=== PATIENT | female | born 1990 | race Caucasian/White ===

== ENCOUNTER 2023-12-13 12:43 | Outpatient (CLI) | payer OTHER, SELFPAY ==
--- NOTE | 2023-12-13 13:00 | CRLHL7_ITS ---
For Patients: As a result of the Century Cures Act, medical imaging exams and procedure reports are released immediately into your electronic medical record. You may view this report before your referring provider. If you have questions, please contact your health care provider. INDICATION: Dating and viability COMPARISON: None. TECHNIQUE: Real-time starks-scale imaging of the pelvis was performed. FINDINGS: Intrauterine gestational sac is present with a mean sac diameter of 0.89 cm, 5 weeks 5 days. Possible developing yolk sac. No pole. Corpus luteal cyst right ovary measures 2 cm. Left ovary unremarkable. No pelvic free fluid. IMPRESSION: Intrauterine gestational sac measuring 5 weeks 5 days. No pole. Follow-up in 2 weeks recommended. Dictated by Benton Wood MD @ 12/13/2023 3:49:56 PM (Electronically Signed)
== END 2023-12-13 12:44 | disposition home or self-care (01) ==
LOC: US 12:44
PROVIDERS: PCP Internal Medicine; Visit Provider Registered Nurse
DX: Z34.91 Encounter for supervision of normal pregnancy, unspecified, first trimester (principal); Z3A.01 Less than 8 weeks gestation of pregnancy
CPT/HCPCS: 76817

== ENCOUNTER 2023-12-27 09:03 | Outpatient (CLI) | payer OTHER, SELFPAY ==
--- NOTE | 2023-12-27 09:15 | CRLHL7_ITS ---
For Patients: As a result of the Century Cures Act, medical imaging exams and procedure reports are released immediately into your electronic medical record. You may view this report before your referring provider. If you have questions, please contact your health care provider. INDICATION: Follow-up viability COMPARISON: 12/13/2023 TECHNIQUE: Real-time starks-scale imaging of the pelvis was performed. FINDINGS: Sonographic imaging demonstrates a single living intrauterine gestation. The embryo demonstrates a regular cardiac rate measuring 149 beats per minute. The embryo`s crown-rump length measurement of 1.0 cm corresponds to a gestational age of 7 weeks 0 days with a sonographic due date of 08/14/2024. There is a normal-appearing yolk sac. There are no gross abnormalities noted within the embryo at this early state of development. The gestational sac has a normal appearance. There is no evidence of a perigestational hemorrhage. The amount of fluid within the sac appears appropriate for gestational age. The cervix is closed. The myometrium appears normal. The ovaries are of normal size. Corpus luteal cyst right ovary. There are no suspicious fluid collections noted in the cul-de-sac. IMPRESSION: Normal first trimester OB ultrasound exam. Gestational age calculated at 7 weeks 0 days with a sonographic due date of 08/14/2024. Dictated by Benton Wood MD @ 12/27/2023 12:52:00 PM (Electronically Signed)
== END 2023-12-27 09:04 | disposition home or self-care (01) ==
LOC: US 09:03
PROVIDERS: PCP Internal Medicine; Visit Provider Registered Nurse
DX: Z34.91 Encounter for supervision of normal pregnancy, unspecified, first trimester (principal); Z3A.01 Less than 8 weeks gestation of pregnancy
CPT/HCPCS: 76817; 84443; 86592; 86703; 86704; 86706; 86762; 86787; 86803; 86850; 86900; 86901; 87086; 87340; 87491; 87591

== ENCOUNTER 2024-03-14 07:48 | Outpatient (CLI) | payer MEDICAID, SELFPAY | END 2024-03-14 07:49 | disposition home or self-care (01) | LOC: US 07:49 | PROVIDERS: PCP Internal Medicine; Visit Provider Obstetrics & Gynecology | DX: O99.212 Obesity complicating pregnancy, second trimester (principal); Z3A.18 18 weeks gestation of pregnancy | CPT/HCPCS: 76811 ==

== ENCOUNTER 2024-05-22 12:44 | Outpatient (CLI) | payer MEDICAID, SELFPAY | END 2024-05-22 12:45 | disposition home or self-care (01) | LOC: NFLDREF 05-26 01:41 | PROVIDERS: PCP Internal Medicine; Referring Provider Internal Medicine; Visit Provider Obstetrics & Gynecology | DX: Z34.93 Encounter for supervision of normal pregnancy, unspecified, third trimester (principal); Z3A.28 28 weeks gestation of pregnancy | CPT/HCPCS: 86592 ==

== ENCOUNTER 2024-06-07 15:19 | Outpatient (CLI) | payer MEDICAID, SELFPAY | END 2024-06-07 15:20 | disposition home or self-care (01) | LOC: NFLDREF 15:22 | PROVIDERS: PCP Internal Medicine; Visit Provider Obstetrics & Gynecology | DX: R35.0 Frequency of micturition (principal) | CPT/HCPCS: 87086 ==

== ENCOUNTER 2024-06-22 13:06 | Outpatient (CLI) | payer MEDICAID, SELFPAY ==
--- NOTE | 2024-06-22 13:00 | CRLHL7_ITS ---
For Patients: As a result of the Century Cures Act, medical imaging exams and procedure reports are released immediately into your electronic medical record. You may view this report before your referring provider. If you have questions, please contact your health care provider. OB ULTRASOUND NICOL by US: 08/14/2024. GA: 32 w, 3 d. Single. Comparison: 04/10/2024, 03/14/2024. INDICATION: Obesity. TECHNIQUE: Real time grayscale imaging of the fetus was performed. Transabdominal. CERVIX: Not visualized. POSITIONING: Vertex. AMNIOTIC FLUID: 7.5 cm. SDP (N: greater than 2 x 1 cm) PLACENTA: Technique: Transabdominal. PLACENTA POSITION: Posterior. DOPPLER: heart rate: 142 bpm. BIOMETRY: BPD: 8.2 cm. 32 w, 5 d, 51.9 percent. HC: 30.0 cm. 33 w, 1 d, 31.9 percent. AC: 30.6 cm. 34 w, 4 d, 94.7 percent. FL: 6.3 cm. 32 w, 3 d, 38.0 percent. FL/AC ratio: 20.5 percent. HC/AC ratio: 1.0. EFW: 2243 g. Weight: 4 lbs, 15 oz. age by this US: 33 w, 2 d. NICOL by this US: 08/08/2024. Percentile by NICOL: 78.1 percent. IMPRESSION: 1. Sonographic gestational age 33 weeks 2 days and sonographic due date 08/08/2024. Sonographic age is 6 days ahead of the clinical age. 2. Estimated weight 78th percentile. Abdominal circumference 95th percentile. Benton Wood M.D. Diagnostic Radiologist [email or web address] GEORGE/vik chery/Dictated by: Benton Wood MD @ 06/22/2024 2:33:00 PM (Electronically Signed)
== END 2024-06-22 13:07 | disposition home or self-care (01) ==
LOC: US 13:07
PROVIDERS: PCP Internal Medicine; Visit Provider Obstetrics & Gynecology
DX: O99.213 Obesity complicating pregnancy, third trimester (principal); Z3A.32 32 weeks gestation of pregnancy
CPT/HCPCS: 76816

== ENCOUNTER 2024-07-05 14:44 | Outpatient (CLI) | payer MEDICAID, SELFPAY | END 2024-07-05 14:45 | disposition home or self-care (01) | LOC: NFLDREF 07-06 03:21 | PROVIDERS: PCP Internal Medicine; Referring Provider Internal Medicine; Visit Provider Obstetrics & Gynecology | DX: Z34.93 Encounter for supervision of normal pregnancy, unspecified, third trimester (principal); Z3A.34 34 weeks gestation of pregnancy | CPT/HCPCS: 82728 ==

== ENCOUNTER 2024-07-20 15:57 | Outpatient (CLI) | payer MEDICAID, SELFPAY ==
[2024-07-20 22:49] LABS: Strep B Susceptibility Needed? No
[2024-07-21 15:02] LABS: Strep B DNA Probe POSITIVE (Negative)
== END 2024-07-20 15:58 | disposition home or self-care (01) ==
LOC: NFLDREF 15:57
PROVIDERS: PCP Internal Medicine; Visit Provider Obstetrics & Gynecology
DX: Z34.03 Encounter for supervision of normal first pregnancy, third trimester (principal)
CPT/HCPCS: 87081; 87653

== ENCOUNTER 2024-07-27 13:49 | Outpatient (CLI) | payer MEDICAID, SELFPAY ==
--- NOTE | 2024-07-27 14:00 | CRLHL7_ITS ---
For Patients: As a result of the Cures Act, medical imaging exams and procedure reports are released immediately into your electronic medical record. You may view this report before your referring provider. If you have questions, please contact your health care provider. OB ULTRASOUND LMP: 10/09/2024. NICOL by US: 08/14/2024. GA: 37 w, 3 d. Single. Comparison: 06/22/2024, 04/10/2024, 03/14/2024. INDICATION: Obesity. TECHNIQUE: Real time grayscale imaging of the fetus was performed. Transabdominal. CERVIX: Not visualized. POSITIONING: Vertex. AMNIOTIC FLUID: 7.1 cm. SDP (N: greater than 2 x 1 cm) BIOPHYSICAL PROFILE: 2: Gross body movements 2: tone 2: Respiratory activity 2: Amniotic fluid SDP (N: greater than 2 x 1 cm) 8/8: Total score PLACENTA: Technique: Transabdominal. PLACENTA POSITION: Posterior. DOPPLER: heart rate: 155 bpm. IMPRESSION: Normal biophysical profile score 8/8. Benton Wood M.D. Diagnostic Radiologist [email or web address] GEORGE/vik chery/Dictated by: Benton Wood MD @ 07/30/2024 9:14:00 AM (Electronically Signed)
== END 2024-07-27 13:50 | disposition home or self-care (01) ==
LOC: US 13:49
PROVIDERS: PCP Internal Medicine; Visit Provider Obstetrics & Gynecology
DX: O99.213 Obesity complicating pregnancy, third trimester (principal); Z3A.37 37 weeks gestation of pregnancy
CPT/HCPCS: 76819

== ENCOUNTER 2024-08-03 14:02 | Outpatient (CLI) | payer MEDICAID, SELFPAY ==
--- NOTE | 2024-08-03 14:00 | CRLHL7_ITS ---
For Patients: As a result of the Century Cures Act, medical imaging exams and procedure reports are released immediately into your electronic medical record. You may view this report before your referring provider. If you have questions, please contact your health care provider. LMP: 10/10/2023. NICOL by US: 08/14/2024. GA: 38w, 3d. Single. COMPARISON: 07/27/2024, 06/22/2024, 04/10/2024. INDICATION: Obesity in . CERVIX: Not visualized. POSITIONING: Vertex. AMNIOTIC FLUID: 6.6 cm SDP. BIOPHYSICAL PROFILE: Total score: 8. Gross body movements: 2. tone: 2. Respiratory activity: 2. Amniotic fluid: 2. (SDP N: Increase 2 x 1 cm) PLACENTA: Technique: Transabdominal. PLACENTA POSITION: Posterior. DOPPLER: heart rate: 138 bpm. IMPRESSION: Normal biophysical profile 11/16. Benton Wood M.D. Diagnostic Radiologist [email or web address] GEORGE/ysabel / bM/Dictated by: Benton Wood MD @ 08/03/2024 3:18:00 PM (Electronically Signed)
== END 2024-08-03 14:03 | disposition home or self-care (01) ==
LOC: US 14:02
PROVIDERS: PCP Internal Medicine; Visit Provider Obstetrics & Gynecology
DX: O99.213 Obesity complicating pregnancy, third trimester (principal); Z3A.38 38 weeks gestation of pregnancy
CPT/HCPCS: 76819

== ENCOUNTER 2024-08-10 14:06 | Outpatient (CLI) | payer MEDICAID, SELFPAY ==
--- NOTE | 2024-08-10 14:00 | CRLHL7_ITS ---
For Patients: As a result of the Century Cures Act, medical imaging exams and procedure reports are released immediately into your electronic medical record. You may view this report before your referring provider. If you have questions, please contact your health care provider. INDICATION: Obesity in TECHNIQUE: Ultrasound OB pelvis transabdominal. Real-time starks-scale imaging of the fetus was performed with color Doppler and spectral Doppler analysis of the umbilical artery without stress testing. COMPARISON: 08/03/2024 FINDINGS: Sonographic imaging demonstrates a single living intrauterine gestation. Fetus demonstrates a regular cardiac rate of 138 beats per minute. Fetus has a cephalic orientation. The placenta lies posterior, fundal. Amniotic fluid volume appears normal with a MVP of 5.4 cm. breathing movements, motion, and tone were all observed. IMPRESSION: Single viable intrauterine with a biophysical profile 11/16. Dictated by Nelson Gonzaelz MD @ 08/10/2024 3:52:50 PM (Electronically Signed)
== END 2024-08-10 14:07 | disposition home or self-care (01) ==
LOC: US 14:06
PROVIDERS: PCP Internal Medicine; Visit Provider Obstetrics & Gynecology
DX: O99.213 Obesity complicating pregnancy, third trimester (principal); Z3A.37 37 weeks gestation of pregnancy
CPT/HCPCS: 76819

== ENCOUNTER 2024-08-12 09:24 | Inpatient (IN) | payer MEDICAID, SELFPAY ==
[2024-08-12] VITALS (67 sets, daily range): BP systolic 122–159; BP diastolic 52–83; PULSE 54–106; RESP 18; TEMP 36.3–37.4; O2SAT 93–100; BMI 38.7
[2024-08-12 09:16] LABS: Amnisure Rom* POSITIVE
[2024-08-12 11:07] LABS: Basophils Percent Auto 0.2 % (0.0-3.0); Eosinophils Percent Auto 0.5 % (0.0-7.0); Hematocrit 36.1 % (33.0-51.0); Hemoglobin* 11.9 gm/dL (12.0-16.0); Immature Granulocytes Pct Auto 0.2 %; Lymphocytes Percent Auto 12.8 % (20-44); Mean Corpuscular HGB Conc 33 gm/dL (32-36); Mean Corpuscular Hemoglobin 28 pg (26-34); Mean Corpuscular Volume 84 fL (80-100); Monocytes Percent Auto 4.5 % (0.0-11.0); Neutrophils Percent Auto 81.8 % (42.0-72.0); Platelet Count* 291 K/uL (140-440); RDW Coefficient of Variation % 14.2 % (11.5-15.5); Red Blood Count 4.28 m/uL (4.00-5.20); White Blood Count* 12.15 K/uL (4.50-11.00)
[2024-08-12 11:16] LABS: Slide Review Reflex No
[2024-08-12] MEDS: LACTATED RINGERS 1000 ML 1,000 ML 125 ML IV ×2 (12:28→15:39)
[2024-08-12] MEDS: AMPICILLIN 2 GM in 0.9 % SODIUM CHLORIDE Mini-bag 100 ML IVPB (12:28)
[2024-08-12] MEDS: OXYTOCIN 30 unit/500 ML in NS 30 UNIT/500 ML BAG IVPB (13:23)
[2024-08-12] MEDS: ROPIVACAINE 0.2% 100 ml 100 ML 12 MG EPIDURAL ×2 (15:27→23:05)
[2024-08-12] MEDS: BUPIVACAINE 0.25% PF 10 ML 10 ML ML EPIDURAL (15:27)
--- NOTE | 2024-08-12 15:34 | P.ANBPRC_ITS ---
PFSH PFSH Family History Mother High blood pressure Depression Social History (Updated 12/27/23 @ 10:39 by Earline Hyman PA-C) Narrative: Occupation: staffing associate. Marital status: Single. Zoroastrian/cultural needs: no. Chemical or radiation exposure: no. Pre- tobacco use: Vape. Pre- alcohol use: no. Current tobacco use: Vape. Current alcohol use: no. Recreational drug use: no. Dietary restrictions: no. Blood transfusion acceptable in an emergency: yes. PSYCHOSOCIAL HISTORY: History of depression or currently depressed: yes. Current or past physical, emotional, or sexual mistreatment: Denies. Problems that will make it hard to make it to appointments: No What is your current living situation?: I presently have a place to live Problems where you live: smoke detectors missing or not working In the past 12 months, utilities in danger of being shut off: no In past 12 months, lack of transportation kept you from medical appts, meetings, work, or getting things needed for daily living: no In the past 12 mos, have been you worried that your food would run out before you had money to buy more?: never true In the past 12 mos, the food you bought just didn't last and you didn't have money to buy more?: never true Smoking Status: Current every day smoker How often does anyone, including family, friends and others, physically hurt you : never How often does anyone, including family, friends and others, insult or talk down to you: never How often does anyone, including family, friends and others, threaten you with harm: never How often does anyone, including family, friends and others, scream or curse at you: never Health Related Social Needs: Inadequate housing (Z59.1) Meds Home Medications and Allergies Home Medications ?Medication ?Instructions ?Recorded ?Confirmed ?Type ibuprofen 600 mg tablet 600 mg PO Q8H PRN 12/13/23 08/12/24 History [id number] 3-fat com #1 27 1 cap PO DAILY 12/27/23 08/12/24 History mg-1 mg-300 mg capsule acetaminophen 325 mg tablet 325 mg PO ONCE PRN 12/27/23 08/12/24 History (Tylenol) aspirin 81 mg tablet,delayed 81 mg PO QDAY 02/23/24 08/12/24 History release magnesium 250 mg tablet 500 mg PO QDAY 02/23/24 08/12/24 History ferrous sulfate 325 mg (65 mg 325 mg PO QDAY 07/20/24 08/12/24 History iron) tablet (Feosol) Allergies Allergy/AdvReac Type Severity Reaction Status Date / Time atorvastatin (From Lipitor) Allergy Mild Verified 08/12/24 11:43 metronidazole Allergy Mild Verified 08/12/24 11:43 Results Labs Labs: Laboratory Results - last 24 hr 08/12/24 08/12/24 09:02 10:50 WBC 12.15 H RBC 4.28 Hgb 11.9 L Hct 36.1 MCV 84 MCH 28 MCHC 33 RDW Coeff of Fredi 14.2 Plt Count 291 Neut % (Auto) 81.8 H Lymph % (Auto) 12.8 L [place] % (Auto) 4.5 Eos % (Auto) 0.5 Baso % (Auto) 0.2 Neut # (Auto) 9.90 H Lymph # (Auto) 1.60 [place] # (Auto) 0.50 Eos # (Auto) 0.10 Baso # (Auto) 0.00 Abs Immat Gran (auto) 0.00 Imm/Tot Granulo (auto) 0.2 Membrane Rupture POSITIVE Vital Signs Vital Signs: Last Vital Signs Temp 97.7 F 08/12/24 13:43 Pulse 60 08/12/24 15:33 BP 128/76 08/12/24 15:33 Pulse Ox 100 08/12/24 15:30 Weight: 108.862 kg Height: 167.64 cm Anesthesia Procedures Epidural Insertion Patient Location: OB Start Time: 15:00 Stop Time: 15:35 Start Date: 08/12/24 Stop Date: 08/12/24 Reason for Block: procedure for pain Patient Position: sitting Performed By: Darvin Huddleston Preanesthetic Checklist: IV checked, risks and benefits discussed, monitors and equipment checked, pre-op evaluation, timeout performed and anesthesia consent Prep: chlorhexidine gluconate Monitoring: blood pressure monitoring, continuous pulse oximetry and heart rate Approach: midline Vertebral Space: lumbar (1-5) Epidural Technique: EMILIANO saline Needle Type: Tuohy needle Injection Technique: continuous catheter Needle gauge: 17 Needle Length (cm): 10 cm Needle Insertion Depth (cm): 8 Catheter Gauge: 19 Catheter Type: multi-orifice Catheter at skin depth (cm): 14 Test Dose Result: negative and lidocaine 1.5% with epinephrine 1 to 200,000
[2024-08-12] MEDS: AMPICILLIN 1 GM in 0.9 % SODIUM CHLORIDE Mini-bag 100 ML IVPB ×2 (16:22→20:29)
--- NOTE | 2024-08-12 18:21 | W.PM.LDBA ---
Subjective History of Present Illness Narrative: Patient is being admitted to Labor and Delivery for spontaneous labor. She is a 34 year old at 39weeks gestation. Her full history and physical was dictated by myself on 07/27/24. Please see this for details. Active movement. Having increased in contractions and SROM at 0500. Denies vaginal bleeding or abnormal vaginal discharge. Specific Issues/Plans G1 Partner: Chen Baby: Girl! [facility] H&P: by Dr. 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 D/C use again at around 23 weeks, doing well w/o. # nicotine dependence, vaping Tapering and planning to quit # reactive airway disease, uses albuterol with viral URI/cough #Hydradenitis Suppurativa Topical Clindamycin #Anemia -Hgb 10.6 at 34 weeks - Recommend Fe supplement [x] recheck Hgb on admission for delivery (with hurricane spray) Imagin03/14/24: Level 2: [place] intrauterine at 18w 1d gestational age.None of the anomalies commonly detected by ultrasound were evident in the detailed anatomic survey described above, although evaluation of anatomy was suboptimal as noted above.Growth parameters and estimated weight were consistent with appropriate for gestational age pattern of growth.The amniotic fluid volume appeared normal.Recommendation: We reviewed that the visualized anatomy appeared within normal limits although some portions of the anatomy were suboptimally seen as noted above. Recommend a repeat US in 3-4 weeks at [facility] in [place] to re-evaluate growth and anatomy, including anatomy that was suboptimally seen today.Given BMI > 35, recommend repeat assessment of growth and anatomy at 32 weeks and weekly BPP at 37 weeks, which I anticipate will be scheduled through [place] [facility]. 04/10/24: Follow-up anatomy normal. EFW: 82 percentile, abdominal circumference: 62 percentile. Cephalic. SDP: 5.5cm. Continue with previous recommendations. Growth US: EFW 78%, AC 95% Vaccinations: COVID: No previous COVID immunization, declines Flu shot: No previous flu shot, declines Tdap: 07/05/24 RSV: N/A 32 week mental health: Last Pap: 09/08/23 ASCUS/+HPV 18, [place] 10/2023: JAMES 1 Pap OB - Problem Based A/P Additional Plan (1) Needle phobia: Problem details: Please use Hurricane spray for blood draws and IV start Status: Acute (2) Obesity: Status: Chronic (3) Depression: Status: Chronic (4) Nicotine dependence: Status: Chronic (5) History of abnormal cervical Pap smear: Problem details: 10/20/2023: Colposcopy. Pathology: JAMES 1 07/06/2017: NILM 05/20/2022: NILM, positive HPV other 09/08/2023: ASCUS positive HPV, +16/18 10/2023 colp: JAMES 1 Status: Acute (6) Obesity affecting : Status: Acute (7) Asthma: Status: Acute (8) Spontaneous onset of labor: Status: Acute (9) Positive GBS test: Status: Acute Plan - Expectant management. Will recheck in two hours. If unchanged, will offer pitocin - Pain management: per patient - GBS +: ampicillin intrapartum OB Exam Physical Exam Vital signs: Temp Pulse BP Pulse Ox 97.9 F 71 132/62 98 08/12/24 16:53 08/12/24 18:08 08/12/24 18:08 08/12/24 16:00 Narrative: Physical exam: General: No acute distress Psych: Alert and oriented x3, full affect HEENT: Normocephalic, atraumatic Lungs: Unlabored breathing Neuro: No focal deficit. Mentating appropriately Pelvic exam:/-2 per RN
[2024-08-12 18:47] LABS: Mean Corpuscular HGB Conc 32 gm/dL (32-36); Mean Corpuscular Hemoglobin 28 pg (26-34); Mean Corpuscular Volume 86 fL (80-100); Platelet Count* 282 K/uL (140-440); Red Blood Count 4.31 m/uL (4.00-5.20); White Blood Count* 13.96 K/uL (4.50-11.00)
[2024-08-12 18:51] LABS: Slide Review Reflex No
[2024-08-12 19:02] LABS: Alanine Aminotransferase* 11 U/L (4-35); Aspartate Amino Transferase* 22 U/L (12-35); Blood Urea Nitrogen* 10 mg/dL (5-24); Creatinine* 0.5 mg/dL (0.5-1.5); Est. Creatinine Clearance* 149.81; Estimated Glomerular Filt Rate 127 ml/min
[2024-08-12 19:20] LABS: Total Protein Urine 81 mg/dL
[2024-08-12 19:21] LABS: Creatinine Urine 98.5 mg/dL; Protein Creatinine Ratio Urine 0.82 (0-0.19)
--- NOTE | 2024-08-12 23:54 | W.PM.VAGDEL1 ---
Procedure Delivery date: 08/12/24 Procedure Done: Global Events: Labor Augmentation Intrapartal Events: Mod/Heavy Meconium Fluid Delivery monitor: external FHT Route of delivery: Narrative: The patient is a 34 year-old admitted on 08/12/24 at 39 and 5/7 weeks gestation due to spontaneous labor with SROM at 2213-0743. GBS positive. Received intrapartum antibiotics Labor Analgesia: Epidural Pitocin: For augmentation of labor and active 3rd stage management SROM: 08/12/24 at [id number], with light meconium fluid. At time of delivery, thick meconium was noted. Labor onset: 08/12/24 at 0200 Complete: 08/12/24 at 2205 Pushin08/12/24 at 2213 heart tones during second stage were cat II due to intermittent period of tachycardia in the 170s and rare variable decelerations that spontaneously resolved. Moderate variability throughout and multiple accelerations. At 2328 a viable female delivered in vertex OA presentation over intact via spontaneous vaginal delivery. Delivery was complicated by shoulder dystocia. Shoulder dystocia was anticipated due to: turtle sign. Additional assistance was requested, and a step stool was obtained. Shoulder dystocia was encountered at: 2328. The 's head delivered without difficulty, but the right anterior shoulder became impacted behind the maternal pubic symphysis. Pedro maneuver performed in conjunction with suprapubic pressure. Shoulder was relieved with: Finnegan's maneuver Shoulder dystocia lasted for: 30 seconds. After delivery of the anterior shoulder. The rest of the body was also impacted for another 30 seconds. Gentle traction up and down, toggling the body relieved the body dystocia. Cord was clamped twice and cut after 30-60 sec of delayed cord clamping and handed over to the awaiting pediatric staff. Cord gases were obtained: unavailable at time of this note due to shoulder dystocia. The placenta was delivered spontaneously @ 2332. The placenta appeared intact and had three-vessel cord. There were no complications beyond the shoulder dystocia. Interventions performed: - McRobert?s maneuver: Yes - Suprapubic pressure: Yes - Rotational maneuvers: Yes - Delivery of posterior arm: No - Episiotomy: No - Other techniques utilized: None APGARs: 6/6/8 Infant weight: 4495 g (9lb 15oz) assessment: normal movements of bilateral upper extremity Maternal assessment: Placenta was sent to pathology due to pre-eclampsia (diagnosed intrapartum) and thick meconium. The cervix and vagina were inspected for lacerations, and 2nd degree perineal and bilateral labial were noted. Laceration(s): 2nd degree perineal and right labial were repaired with 2-0 vicryl. Left labial tear was not repaired as it was superficial and not bleeding. Complications: Shoulder dystocia Quantitative blood loss: 100 cc Sponge and needles counts are correct. Post event care: - : Immediate resuscitation required: Yes, CPAP - Event debriefed with patient and family. Shoulder dystocia explained: This is were anterior shoulder his impacted at the maternal pubic symphysis. Reported incident a 0.2-3% to vaginal deliveries. Patient had the risk factors of: macrosomia. Most shoulder dystocia cases are relieved without injury to the fetus. injuries associated with shoulder dystocia include: Brachial plexus injury which occurs in about 10-20% of cases. Most cases resolve within weeks to months without any lingering sequelae. Rarely there may be some long-term complications. Fractures can occur. Clavicular fracture happens in 2-10% of cases. Humerus fracture is less common in 1-2%. Severe cases leading to brain injury, however rare, estimated at less than 1%. This is often dependent on the duration of the delivery and effectiveness of resuscitation efforts. The most common complications are contusions possible laceration from the maneuvers performed. - Maternal complications include: worse vaginal/perineal laceration and higher risk of hemorrhage. - Although there are several known risk factors, shoulder dystocia cannot be accurately predicted. Most cases occur in nondiabetic woman with normal size infant. Her infant would be considered macrosomic and this is the cause of shoulder dystocia. Adam does not desire anymore children. However, I did newspaper delivery counselor her that patient with prior shoulder dystocia is at increased risk of recurrent shoulder dystocia in subsequent . Depending on risk factors and patient?s disposition/clinical history, a delivery can be considered. All questions were answered to patient?s satisfaction and the best of my ability. All maneuvers and interventions were performed in accordance with standard obstetric lines to minimize the risk of injury to both mother and infant. Mother and infant were stable at the time of this note. Infant off CPAP.
[2024-08-13] VITALS (14 sets, daily range): BP systolic 109–168; BP diastolic 56–83; PULSE 61–81; RESP 15–18; TEMP 36.4–37.7; O2SAT 97–98
[2024-08-13] MEDS: IBUPROFEN 600 MG TABLET PO ×4 (00:27→23:28)
[2024-08-13] MEDS: ACETAMINOPHEN 500 MG TABLET 1000 MG PO ×3 (00:55→19:54)
[2024-08-13 06:40] LABS: Hematocrit 32.7 % (33.0-51.0); Hemoglobin* 10.6 gm/dL (12.0-16.0); Mean Corpuscular HGB Conc 32 gm/dL (32-36); Mean Corpuscular Hemoglobin 28 pg (26-34); Mean Corpuscular Volume 86 fL (80-100); Platelet Count* 271 K/uL (140-440); Red Blood Count 3.82 m/uL (4.00-5.20); White Blood Count* 16.63 K/uL (4.50-11.00)
[2024-08-13 06:59] LABS: Alanine Aminotransferase* 11 U/L (4-35); Aspartate Amino Transferase* 29 U/L (12-35); Blood Urea Nitrogen* 9 mg/dL (5-24); Creatinine* 0.6 mg/dL (0.5-1.5); Est. Creatinine Clearance* 124.85; Estimated Glomerular Filt Rate 121 ml/min
[2024-08-13 07:07] LABS: Slide Review Reflex No
--- NOTE | 2024-08-13 08:18 | PM.OBPNVD1 ---
OB - PN:Subj Subjective Date Seen: 08/13/24 Narrative: Adam is a 34 y.o. who was admitted to L & D for labor.? She had a NVD complicated by development of preeclampsia without severe features.? ?? The patient feels well.? The pain is well controlled with current medications.? She has no new complaints.? She is formula feeding and reports things are going well, she does plan to try breast feeding later today.? the patient has done well.? Vitals have been stable.? She has remained afebrile.? Has a good appetite, is tolerating a general diet.? She is voiding without difficulty.? She is passing gas and has not had a bowel movement.? She is ambulating and denies any dizziness.? Has Small amount of rubra lochia.? OB - PN: Obj Exam Physical Exam: Vital signs: Temp Pulse Resp BP Pulse Ox O2 Del Method 97.7 F 66 16 111/70 98 Room Air 08/13/24 03:07 08/13/24 03:07 08/13/24 03:07 08/13/24 03:07 08/13/24 00:21 08/13/24 03:07 Narrative: GENERAL APPEARANCE:? normal affect, alert, no distress? MOOD:? appropriate? HEENT: normocephalic, neck supple, full ROM? CHEST:? Symmetrical chest wall movement.? Normal respiratory effort.? Clear to auscultation ? HEART:? regular rate and rhythm? ABDOMEN:? soft, non-tender. Uterine fundus is firm, 1cm below Umbilicus, Midline and is appropriate for the stage of recovery.? Bowel sounds present.? PERINEUM:? mild edema of the perineum, there is a 2nd degree perineal and bilateral labial degree laceration that is healing well.? EXTREMITIES:? normal and no edema? OB - PN: Obj Data Labs Labs: Laboratory Results - last 24 hr 08/12/24 08/12/24 08/12/24 09:02 10:50 18:18 WBC 12.15 H 13.96 H RBC 4.28 4.31 Hgb 11.9 L 12.0 Hct 36.1 37.0 MCV 84 86 MCH 28 28 MCHC 33 32 RDW Coeff of Fredi 14.2 Plt Count 291 282 Neut % (Auto) 81.8 H Lymph % (Auto) 12.8 L [place] % (Auto) 4.5 Eos % (Auto) 0.5 Baso % (Auto) 0.2 Neut # (Auto) 9.90 H Lymph # (Auto) 1.60 [place] # (Auto) 0.50 Eos # (Auto) 0.10 Baso # (Auto) 0.00 Abs Immat Gran (auto) 0.00 Imm/Tot Granulo (auto) 0.2 BUN 10 Creatinine 0.5 Estimated Creat Clear 149.81 Estimated GFR 127 AST 22 ALT 11 Urine Creatinine Protein/Creatinin Ratio Urine Total Protein Membrane Rupture POSITIVE 08/12/24 08/13/24 18:55 05:57 WBC 16.63 H RBC 3.82 L Hgb 10.6 L Hct 32.7 L MCV 86 MCH 28 MCHC 32 RDW Coeff of Fredi Plt Count 271 Neut % (Auto) Lymph % (Auto) [place] % (Auto) Eos % (Auto) Baso % (Auto) Neut # (Auto) Lymph # (Auto) [place] # (Auto) Eos # (Auto) Baso # (Auto) Abs Immat Gran (auto) Imm/Tot Granulo (auto) BUN 9 Creatinine 0.6 Estimated Creat Clear 124.85 Estimated GFR 121 AST 29 ALT 11 Urine Creatinine 98.5 Protein/Creatinin Ratio 0.82 H Urine Total Protein 81 Membrane Rupture OB - PN: A/P Delivery Assessment and Plan (1) Preeclampsia: Status: Acute (2) care and examination immediately after delivery: Status: Acute (3) Needle phobia: Problem details: Please use Hurricane spray for blood draws and IV start Status: Acute (4) Obesity: Status: Chronic (5) Depression: Status: Chronic (6) Nicotine dependence: Status: Chronic (7) Obesity affecting : Status: Acute (8) Asthma: Status: Acute (9) NVD (normal vaginal delivery): Status: Acute Plan day: 1 Plan: routine care Comments: G 1 P 1 status post uncomplicated NVD??? 1.? Continue route PP cares? 2.? Plan to attempt .? May see if desired? 3.? Anticipate discharge home tomorrow?
[2024-08-13] MEDS: DOCUSATE SODIUM 100 MG CAPSULE PO (08:24)
--- NOTE | 2024-08-13 10:59 | PM.ANPOST ---
Post Anesthesia Note Post Anesthesia Note Patient seen: Inpatient Respiratory Status: adequate Cardiovascular Status: adequate Mental Status: baseline Pain: adequate Temp: baseline Anesthetic awareness: N/A Complications: none Follow care: none
[2024-08-13] MEDS: SERTRALINE 50 MG TABLET PO (21:02)
[2024-08-14] MEDS: ACETAMINOPHEN 500 MG TABLET 1000 MG PO ×2 (03:00→09:26)
[2024-08-14 03:02] VITALS: BP 129/78
[2024-08-14] MEDS: IBUPROFEN 600 MG TABLET PO ×2 (05:50→11:11)
--- NOTE | 2024-08-14 08:20 | P.DS_ITS ---
DS: Providers Provider Date Seen: 08/14/24 Date of admission: 08/12/24 09:24 Primary care physician: Adan Bauer MD Admitting Clinician: Lesli Smith MD Attending Physician on discharge: Lesli Smith MD Date of Discharge: 08/14/24 DS: Diagnosis Discharge Diagnosis (1) care and examination immediately after delivery: Status: Acute (2) Preeclampsia: Status: Acute (3) Needle phobia: Status: Acute Problem details: Please use Hurricane spray for blood draws and IV start (4) Obesity: Status: Chronic (5) Depression: Status: Chronic (6) Nicotine dependence: Status: Chronic Exam Narrative: Exam Narrative: GENERAL APPEARANCE:? normal affect, alert, no distress? MOOD:? appropriate? CHEST:? clear to auscultation and percussion? HEART:? regular rate and rhythm? ABDOMEN:? soft, non-tender the uterine fundus is U/3 and is appropriate for the stage of recovery.? PERINEUM:? mild edema of the perineum, there is a 2nd degree laceration that is healing well.? EXTREMITIES:? normal and no edema? Const: Vital Signs, click to edit/add: Vital Signs - 24 hr 08/13/24 12:00 08/13/24 17:45 08/13/24 20:29 Temperature 97.6 F 97.7 F Pulse Rate [Right Pulse Oximeter] 62 61 62 Respiratory Rate 16 16 16 Blood Pressure [Ri ght Arm] 118/78 129/81 127/83 Pulse Oximetry 97 98 98 Oxygen Delivery Me thod Room Air Room Air Room Air 08/13/24 23:42 08/14/24 03:02 Temperature 97.7 F Pulse Rate [Right Pulse Oximeter] 62 Respiratory Rate 17 Blood Pressure [Ri ght Arm] 109/70 129/78 Pulse Oximetry 98 Oxygen Delivery Me thod Room Air Documenting provider has reviewed patient's vital signs: yes OB - DS: Summary Hospital Course Hospital Course: The patient is a 34 year old G 1 P 1 at 39.5 weeks gestation that was admitted to the Center on 08/12/24 for labor. She had an vaginal delivery complicated by preeclampsia without severe features. She delivered a viable female . She is bottle feeding but also attempting to put baby to the breast. Encouraged consult again before discharge as well as ECFE and consult PRN after discharge. the patient has done well. Her pain is well controlled with current medications.? She has no new complaints.? Urinary output is adequate and she is voiding without difficulty.? Has a good appetite, is tolerating a general diet, is passing flatus, and has not had a bowel movement.? Has scant amount of rubra lochia.? She is ambulating well. Will plan to send her home with a BP cuff as she only have a wrist BP cuff at home. Reviewed preeclampsia symptoms. She is uncertain about her PP contraception plan but considering OCP. Discussed options if she is at the 6 week PP visit. Discussed mood and encouraged her to continue with her current medication. Peripartum Data Infant delivery method: Vaginal Laceration description: Perineal - 2nd Degree complications: none [place] Infant Gender: Female Discharge Plan: Home Status at Discharge Functional status at discharge: independent ambulation Overall status at discharge: patient is progressing back to baseline Time Spent with Patient Time attestation: Total time spent providing and/or coordinating discharge services: Discharge Plan Discharge Disposition: Home, Self-Care Date of Admission: 08/12/24 09:24 Attending Provider on Discharge: Laverne Atkins Primary Care Provider: Adan Bauer Condition: Stable Anticipated Discharge Date/Time: 08/14/24 12:00 Discharge Medications: New docusate sodium 100 mg Capsule 100 mg PO DAILY Qty: 120 0RF Rx Instructions: Take 1-2 tablets daily as needed for constipation. ibuprofen 600 mg Tablet 600 mg PO Q6H PRNQty: 60 0RF Continued albuterol sulfate 90 mcg/actuation HFA aerosol inhaler 2 puff inhalation Q6H PRN (Reason: shortness of breath or wheezing) Qty: 8.5 0RF ferrous sulfate [Feosol] 325 mg (65 mg iron) tablet 325 mg PO QDAY ibuprofen 600 mg tablet 600 mg PO Q8H PRN acetaminophen [Tylenol] 325 mg tablet 325 mg PO ONCE PRN [id number] 3-fat com #1 27-1-300 mg capsule 1 cap PO DAILY magnesium 250 mg tablet 500 mg PO QDAY sertraline 50 mg tablet 50 mg PO QDAY Qty: 30 0RF Discontinued aspirin 81 mg tablet,delayed release (DR/EC) 81 mg PO QDAY Discharge Orders: Discharge Order (Routine); Ordered 08/14/24 Ordered By: Laverne Atkins Patient Education: OB Vaginal/Breast Feeding Additional Instructions: Discharge instructions were reviewed with the patient including signs and symptoms of infection and home going medications.? Lifting Restrictions: 20 pounds for 6? weeks? ?? Do not drive while taking narcotic pain meds.? Off Work or School for 6 weeks.? ?? Symptoms to report to doctor:? -Bleeding that saturates more than one pad per hour? -Passing clots larger than the size of a golf ball? -Pain not relieved by prescribed medication? -Fever above 100.4 degrees Fahrenheit? -A foul vaginal odor? -Difficulty in emotions, mood and functions? -Thoughts of hurting yourself and/or ? -Painful, reddened area in your breast? -Any drainage, redness or tenderness in your IV/epidural site? -Severe headache that doesn't improve after taking medications? -Changes in vision, including temporary loss of vision, blurred vision, and/or light sensitivity? -Upper abdominal pain (usually under ribs on the right side)? -Decrease in urination or painful, frequent urinating? -Chest pain? -Shortness of breath? -Tenderness or pain with redness and/swelling in the calf(s) of your leg? Follow up visits:?? 1. 2-3 day blood pressure check.? 2. 2-week visit: discuss infant feeding/care concerns, review control options and screen for anxiety/depression.? 3. 6-week visit for an annual exam.? Activity Level: Activity as Tolerated Discharge Diet: Regular Follow Up Appointments: [facility] [Provider Group] Forms: [facility] Info Instructions
[2024-08-14] MEDS: DOCUSATE SODIUM 100 MG CAPSULE PO (09:26)
[2024-08-14 09:29] VITALS: BP 124/79; PULSE 57; RESP 12; TEMP 36.7; O2SAT 97
[2024-08-15 02:18] LABS: Rapid Plasma Reagin (RPR) Non Reactive (Non Reactive)
== END 2024-08-14 11:30 | disposition home or self-care (01) | DRG 807 ==
LOC: OB OUT 09:24 → OB 09:24
PROVIDERS: Admitting Provider Obstetrics & Gynecology; PCP Internal Medicine; Visit Provider Obstetrics & Gynecology
DX: O14.04 Mild to moderate pre-eclampsia, complicating childbirth (principal); Z37.0 Single live birth; Z3A.39 39 weeks gestation of pregnancy; F40.298 Other specified phobia; O99.344 Other mental disorders complicating childbirth; F32.A Depression, unspecified; F41.9 Anxiety disorder, unspecified; O99.214 Obesity complicating childbirth; E66.9 Obesity, unspecified; O99.02 Anemia complicating childbirth; D64.9 Anemia, unspecified; O66.0 Obstructed labor due to shoulder dystocia; O77.0 Labor and delivery complicated by meconium in amniotic fluid; O70.1 Second degree perineal laceration during delivery; O76 Abnormality in fetal heart rate and rhythm complicating labor and delivery; J45.909 Unspecified asthma, uncomplicated; L73.2 Hidradenitis suppurativa; F17.290 Nicotine dependence, other tobacco product, uncomplicated; O99.824 Streptococcus B carrier state complicating childbirth; Z87.42 Personal history of other diseases of the female genital tract
CPT/HCPCS: 01967; 36415; 82565; 82570; 84112; 84156; 84450; 84460; 84520; 85018; 85025; 85027; 86592; 88307; A9270; J0290; J0665; J2795; J7120

== ENCOUNTER 2024-09-25 13:30 | Outpatient (CLI) | payer MEDICAID, SELFPAY ==
[2024-09-28 17:22] LABS: HPV Source Cervix; HPV, High Risk by TMA Detected
[2024-09-30 22:58] LABS: HPV Genotype 16 by TMA Not Detected; HPV Genotype 18/45 by TMA Detected; HPVG Source Cervix
== END 2024-09-25 13:31 | disposition home or self-care (01) ==
PROVIDERS: PCP Internal Medicine; Visit Provider Registered Nurse
DX: Z12.4 Encounter for screening for malignant neoplasm of cervix (principal); Z11.51 Encounter for screening for human papillomavirus (HPV)
CPT/HCPCS: 87624; 87625; 88141; 88142